=== PATIENT | male | born 2000 ===

== ENCOUNTER 2024-11-11 12:51 | Emergency (ER) | payer OTHER, SELFPAY ==
[2024-11-11 12:54] VITALS: BP 117/64; PULSE 61; RESP 16; TEMP 36.8; O2SAT 97; BMI 33.3
--- NOTE | 2024-11-11 13:04 | ED.GENADULT ---
HPI - General Adult General Chief complaint: General Medical Stated complaint: rabies vaccine Time Seen by Provider: 11/11/24 12:53 Source: patient, RN notes reviewed and old records reviewed Mode of arrival: ambulatory Limitations: no limitations History of Present Illness ED Provider: Michelle ROGEL narrative: 24-year-old male presents for evaluation of a bat exposure. He reports that he saw a bad in his house last night. He thought that had gotten outside but when he woke up this morning he saw the bat in his kitchen. He reports that he slept with his bedroom door closed and does not believe the bad came in contact with him He is requesting rabies vaccination. He has no physical complaints at this time Related Data Allergies Allergy/AdvReac Type Severity Reaction Status Date / Time No Known Allergies Allergy Verified 11/11/24 12:59 Review of Systems Review of Systems: Yes all other systems are reviewed and are negative PMFSH Social History Social History Advance Directives: No Advance Directives Information Provided: Yes Physical Exam ED Vital Signs: Vital Signs - 24 hr 11/11/24 12:54 Temperature 98.2 F Pulse Rate 61 Respiratory Rate 16 Blood Pressure 117/64 Pulse Oximetry 97 Oxygen Delivery Method Room Air BMI result Body Mass Index 33.3 Const General: healthy appearing, comfortable, no acute distress, alert and awake Nutritional Appearance: well nourished Orientation/consciousness: patient oriented x3 HENMT Head: Yes normocephalic and Yes atraumatic Eyes Eyelids: Yes eyelids normal Conjunctivae: conjunctivae normal Sclerae: sclerae normal Corneas: corneas normal Pupils: Equal, round and reactive pupils present EOM: EOMs intact bilaterally Neck Neck: Yes full ROM Resp Effort & Inspection: normal respiratory effort, able to speak in complete sentences and not labored Skin General skin exam: elasticity normal Neuro General: patient oriented x3 Cranial nerves: Yes Equal, round and reactive pupils present and Yes Bilaterally intact EOM present Cognition (Neuro): normal cognition Medications Administered Discontinued Medications Generic Name Dose Route Start Last Admin Trade Name Freq PRN Reason Stop Dose Admin Rabies Immune Globulin 1,990 unit 11/11/24 13:00 11/11/24 13:49 Rabies Immune Globulin/Pf 900 Unit/3 Ml Vial 20 unit/kg (1990 unit) 11/11/24 13:01 1,990 unit IM Administration ONCE ONE Rabies Vaccine 1 ml 11/11/24 13:00 11/11/24 13:51 Rabies Vaccine (Pcec)/Pf 1 Ml Vial IM 11/11/24 13:01 1 ml .ONCE ONE Administration Medical Decision Making Medical Decision Making MDM Narrative: 24-year-old male presents for evaluation of a bat exposure in his requesting rabies vaccination. I do not feel that the rabies vaccination is 100% indicated as the patient does not have any actual contact with the bat any slept in his bedroom door closed. I did discuss this with the patient and I did not recommend getting the vaccination today, however the patient is requesting the rabies vaccination which was ordered. Differential Diagnosis Differential Diagnoses: The differential diagnosis associated with the presentation includes Bat exposure Rabies exposure Anxiety Discharge Plan Discharge Clinical Impression: Exposure to bat without known bite Patient Disposition: Home, Self-Care Instructions: Rabies Vaccine (By injection) Additional Instructions: Rabies follow up with [place] [facility]: Upon discharge from the ED today, you will be contacted by the Infusion Center to schedule your follow up Rabies vaccines. You will need a total of 3 more injections. If for some reason you do not receive a call, please call the Infusion Center directly at [phone]. Follow up with your primary care provider after completion of the vaccine to have a titer drawn to ensure the vaccines effectiveness. You were given the 1st dose in the rabies series. You need to follow up with the infusion center, they should call you tomorrow or Saturday to schedule your next dose which would be on November 14, 3 days after the initial dose. You will also need to be seen 7 days after initial visit and 14 days after initial visit. Print Language: [place]
[2024-11-11 13:35] VITALS: BP 117/64; PULSE 61; RESP 16; TEMP 36.8; O2SAT 97
--- OUTSIDE RECORDS SUMMARY | 2024-11-11 13:46 | XMS_ITS | Clinical Summary ---
Author Organization [facility] [facility] ity Address [address] [place] [address] Care Team Providers Care Materials Director Name Role Phone Baldev Munoz MD Primary Care Provider Unavailable Social History Tobacco Use Types Packs/Day Years Used Date Smoking Tobacco: Never Assessed Sex and Gender Information Value Date Recorded Sex Assigned at Not on file Legal Sex Male 2:18 PM EST Gender Identity Not on file Sexual Orientation Not on file Plan of Treatment Health Maintenance Due Date Last Done Comments DTaP,Tdap,and Td Vaccines (7 - Td or Tdap) 01/24/2022 01/25/2012, 12/19/2005, 10/12/2002, Additional history exists COVID-19 Vaccine ( season) 2023 Depression Screening 04/15/2024 Influenza Vaccine (#1) 2024 8, 01/25/2012, 05/07/2007 HIB Vaccines Completed 10/12/2002, 05/16, 04/01/2001, Additional history exists Hepatitis B Vaccines Completed 10/12/2002, 2000, 2000 Pneumococcal Vaccine: Pediatrics (0 to 5 Years) and At-Risk Patients (6 to 49 Years) Completed 10/12/2002, 05/30/2001, 04/01/2001, Additional history exists IPV Vaccines Completed 12/19/2005, 09/15, 05/30/2001, Additional history exists MMR Vaccines Completed 12/19/2005, 11/12/2001 Varicella Vaccines Completed 05/07/2007, 11/12/2001 HPV Vaccines Completed 11/17/2015, 12/14, 10/05/2013 Hepatitis A Vaccines Completed 11/17/2015, 10/06/19 14 Meningococcal ACWY Vaccine Completed 06/27/2017, Meningococcal B Vaccine Aged Out No l onger eligible based on patient's age to complete this topic RSV Immunization Patients Under 20 months Aged Out No longer eligible based on patient's age to complete this topic Care Teams Materials Director Relationship Specialty Start Date End Date Baldev Munoz MD PCP - General Pediatrics 12/27/16
[2024-11-11] MEDS: Rabies Immune Globulin/PF 900 UNIT/3 ML VIAL 1990 UNIT IM (13:49)
[2024-11-11] MEDS: Rabies Vaccine (PCEC)/PF 1 ML VIAL IM (13:51)
== END 2024-11-11 17:09 | disposition home or self-care (01) ==
PROVIDERS: Emergency Provider Emergency Medicine
DX: Z20.3 Contact with and (suspected) exposure to rabies (principal); Z23 Encounter for immunization
CPT/HCPCS: 90375; 90471; 90675; 96372; 99284